=== PATIENT | female | born 1970 | race African-American/Black ===

== ENCOUNTER 2020-11-07 10:39 | Inpatient (IN) | payer OTHER ==
[2020-11-07 11:19] VITALS: BMI 55.9
[2020-11-07] MEDS ORDERED: MAGNESIUM CITRATE 300 ML BOTTLE PO PRN (12:27)
[2020-11-07] MEDS ORDERED: BISMUTH SUBSALICYLATE 524 MG/30 ML PO PRN (12:27)
[2020-11-07] MEDS ORDERED: NICOTINE POLACRILEX 2 MG GUM BUC PRN (12:27)
[2020-11-07] MEDS ORDERED: MENTHOL/PHENOL 1 EACH UD MM PRN (12:27)
[2020-11-07] MEDS ORDERED: MAGNESIUM HYDROX 2400MG/30ML ORAL SUSPENSION 30 ML CUP PO PRN (12:27)
[2020-11-07] MEDS ORDERED: ONDANSETRON *ODT* 4 MG TABLET SL PRN (12:27)
[2020-11-07] MEDS ORDERED: METHADONE HCL 10 MG TABLET (FOR DETOX USE ONLY) PO ONE (12:27)
[2020-11-07] MEDS ORDERED: ACETAMINOPHEN 325 MG TABLET (FP) PO PRN ×2 (12:27)
[2020-11-07] MEDS ORDERED: MAG HYDROX/AL HYDROX/SIMETH 30 ML UNIT-DOSE CUP PO PRN (12:27)
[2020-11-07] MEDS ORDERED: cloNIDine HCL 0.1 MG TABLET PO PRN (12:27)
[2020-11-07] MEDS ORDERED: METHADONE HCL 10 MG TABLET (FOR DETOX USE ONLY) ONE (13:12)
[2020-11-07] MEDS ORDERED: cloNIDine HCL 0.1 MG TABLET ONE (13:12)
[2020-11-07] MEDS: METHOCARBAMOL 500 MG TABLET PO PRN (14:16)
[2020-11-07] MEDS: amLODIPine BESYLATE 10 MG TABLET (FP) PO SCH (14:16)
[2020-11-07 14:41] LABS: HEMOGLOBIN 11.5 GM/dL (10.7-15.3); MCH 26.2 pg (25.7-33.7); MEAN CELL VOLUME 81.9 fl (80-96); MEAN PLT VOLUME 7.5 fl (7.5-11.1); PLATELET COUNT 317 K/MM3 (134-434); RBC 4.39 M/mm3 (3.60-5.2); WHITE BLOOD COUNT 11.4 K/mm3 (4.0-10.0)
[2020-11-07 14:53] LABS: ALBUMIN 3.3 g/dl (3.4-5.0); BLOOD UREA NITROGEN 10.7 mg/dL (7-18); CALCIUM 9.1 mg/dL (8.5-10.1)
[2020-11-07 14:57] LABS: BILIRUBIN,TOTAL 0.5 mg/dL (0.2-1); CREATININE 0.8 mg/dL (0.55-1.3); TOT PROT 7.8 g/dl (6.4-8.2)
[2020-11-07] MEDS: PRENATAL VITAMINS W/ FOLIC ACID TABLET (FP) PO SCH (22:53)
[2020-11-07] MEDS: THIAMINE HCL 100 MG TABLET (FP) PO SCH (23:21)
[2020-11-07] MEDS: MELATONIN 5 MG TABLETS PO SCH (23:41)
[2020-11-08] MEDS ORDERED: METHADONE HCL 5 MG TABLET (FOR DETOX USE ONLY) ONE (08:49)
[2020-11-08] MEDS ORDERED: METHADONE HCL 10 MG TABLET (FOR DETOX USE ONLY) ONE (08:49)
[2020-11-08] MEDS ORDERED: METHADONE (DETOX) 20 MG, METHADONE (DETOX) 5 MG PO ONE (10:00)
[2020-11-08] MEDS: amLODIPine BESYLATE 10 MG TABLET (FP) PO SCH (10:20)
[2020-11-08] MEDS: PRENATAL VITAMINS W/ FOLIC ACID TABLET (FP) PO SCH (10:20)
[2020-11-08] MEDS: METHOCARBAMOL 500 MG TABLET PO PRN ×2 (10:22→17:40)
[2020-11-08] MEDS: IBUPROFEN 400 MG TABLET (FP) PO PRN ×2 (10:23→17:40)
[2020-11-08] MEDS ORDERED: amLODIPine BESYLATE 10 MG TABLET (FP) PO SCH (11:08)
[2020-11-08] MEDS ORDERED: cloNIDine HCL 0.1 MG TABLET PO PRN (11:15)
[2020-11-08] MEDS: MELATONIN 5 MG TABLETS PO SCH (22:52)
[2020-11-08] MEDS: THIAMINE HCL 100 MG TABLET (FP) PO SCH (22:52)
[2020-11-09] MEDS ORDERED: METHADONE HCL 10 MG TABLET (FOR DETOX USE ONLY) PO ONE (10:00)
[2020-11-09] MEDS: PRENATAL VITAMINS W/ FOLIC ACID TABLET (FP) PO SCH (10:58)
[2020-11-09] MEDS: amLODIPine BESYLATE 10 MG TABLET (FP) PO SCH (10:58)
[2020-11-09] MEDS: LISINOPRIL 10 MG TABLET PO SCH ×2 (10:59→22:46)
[2020-11-09] MEDS: IBUPROFEN 400 MG TABLET (FP) PO PRN (10:59)
[2020-11-09] MEDS: METHOCARBAMOL 500 MG TABLET PO PRN ×2 (10:59→17:54)
[2020-11-09] MEDS: MELATONIN 5 MG TABLETS PO SCH (22:45)
[2020-11-09] MEDS: THIAMINE HCL 100 MG TABLET (FP) PO SCH (22:47)
[2020-11-10 08:06] LABS: SARS-CoV-2 NAA Not Detected (Not Detected)
[2020-11-10] MEDS ORDERED: METHADONE HCL 10 MG TABLET (FOR DETOX USE ONLY) ONE (08:41)
[2020-11-10] MEDS ORDERED: METHADONE HCL 5 MG TABLET (FOR DETOX USE ONLY) ONE (08:41)
[2020-11-10] MEDS: LISINOPRIL 10 MG TABLET PO SCH ×2 (09:40→22:43)
[2020-11-10] MEDS: amLODIPine BESYLATE 10 MG TABLET (FP) PO SCH ×2 (09:40→22:43)
[2020-11-10] MEDS: PRENATAL VITAMINS W/ FOLIC ACID TABLET (FP) PO SCH (09:40)
[2020-11-10] MEDS ORDERED: METHADONE (DETOX) 10 MG, METHADONE (DETOX) 5 MG PO ONE (10:00)
[2020-11-10] MEDS: METHOCARBAMOL 500 MG TABLET PO PRN ×2 (13:16→18:17)
[2020-11-10] MEDS: IBUPROFEN 400 MG TABLET (FP) PO PRN ×2 (13:16→18:16)
[2020-11-10] MEDS: QUEtiapine FUMARATE 50 MG TABLET PO SCH (22:44)
[2020-11-10] MEDS: MELATONIN 5 MG TABLETS PO SCH (22:44)
[2020-11-10] MEDS: THIAMINE HCL 100 MG TABLET (FP) PO SCH (22:44)
[2020-11-11] MEDS: METHOCARBAMOL 500 MG TABLET PO PRN (06:45)
[2020-11-11] MEDS ORDERED: METHADONE HCL 10 MG TABLET (FOR DETOX USE ONLY) PO ONE (10:00)
[2020-11-11] MEDS: amLODIPine BESYLATE 10 MG TABLET (FP) PO SCH (11:17)
[2020-11-11] MEDS: LISINOPRIL 10 MG TABLET PO SCH ×2 (11:17→22:48)
[2020-11-11] MEDS: PRENATAL VITAMINS W/ FOLIC ACID TABLET (FP) PO SCH (11:18)
[2020-11-11] MEDS: QUEtiapine FUMARATE 50 MG TABLET PO SCH (22:48)
[2020-11-11] MEDS: THIAMINE HCL 100 MG TABLET (FP) PO SCH (22:48)
[2020-11-11] MEDS: MELATONIN 5 MG TABLETS PO SCH (22:48)
[2020-11-12] MEDS ORDERED: METHADONE HCL 5 MG TABLET (FOR DETOX USE ONLY) PO ONE (06:00)
[2020-11-12] MEDS ORDERED: amLODIPine BESYLATE 10 MG TABLET (FP) PO SCH (10:00)
[2020-11-12] MEDS: LISINOPRIL 10 MG TABLET PO SCH (10:38)
[2020-11-12] MEDS: PRENATAL VITAMINS W/ FOLIC ACID TABLET (FP) PO SCH (10:38)
[2020-11-12 11:08] VITALS: BP 125/85; PULSE 79; TEMP 96.6
== END 2020-11-12 13:48 | disposition other institution (70) | DRG 773 ==
LOC: YASAS 10:39 → Y6N 13:14
PROVIDERS: ADMIT Allergy & Immunology; ATTEND Allergy & Immunology
PROC: HZ2ZZZZ Detoxification Services for Substance Abuse Treatment (ICD-10-PCS; principal; 2020-11-07)
DX: F11.23 Opioid dependence with withdrawal (principal); F10.20 Alcohol dependence, uncomplicated; F17.210 Nicotine dependence, cigarettes, uncomplicated; F31.9 Bipolar disorder, unspecified; F19.282 Other psychoactive substance dependence with psychoactive substance-induced sleep disorder; F19.24 Other psychoactive substance dependence with psychoactive substance-induced mood disorder; I10 Essential (primary) hypertension; A53.0 Latent syphilis, unspecified as early or late; R76.11 Nonspecific reaction to tuberculin skin test without active tuberculosis; Z62.810 Personal history of physical and sexual abuse in childhood; E66.01 Morbid (severe) obesity due to excess calories; Z68.43 Body mass index [BMI] 50.0-59.9, adult
CPT/HCPCS: 36415; 71046-TC-FY; 80053; 81025; 82962; 85027; 86593; 86780; 93005; 93010; C9803; J0735; U0003; U0005

== ENCOUNTER 2020-11-12 13:39 | Inpatient (IN) | payer OTHER ==
[~2020-11-12 13:39] MED LIST: ACETAMINOPHEN 325 MG TABLET (FP) PO PRN; LOPERAMIDE HCL 2 MG CAPSULE PO PRN; MAG HYDROX/AL HYDROX/SIMETH 30 ML UNIT-DOSE CUP PO PRN; MAGNESIUM CITRATE 300 ML BOTTLE PO PRN; MAGNESIUM HYDROX 2400MG/30ML ORAL SUSPENSION 30 ML CUP PO PRN; guaiFENesin 200 MG/10 ML 10 ML UNIT-DOSE CUPS PO PRN
[2020-11-12] MEDS: hydrOXYzine PAMOATE 25 MG CAPSULE (FP) PO SCH ×3 (14:15→21:46)
[2020-11-12] MEDS: THIAMINE HCL 100 MG TABLET (FP) PO SCH (21:45)
[2020-11-12] MEDS: MELATONIN 5 MG TABLETS PO SCH (21:45)
[2020-11-12] MEDS: QUEtiapine FUMARATE 50 MG TABLET PO SCH (21:45)
[2020-11-12] MEDS: LISINOPRIL 10 MG TABLET PO SCH (21:45)
[2020-11-13] MEDS: hydrOXYzine PAMOATE 25 MG CAPSULE (FP) PO SCH ×5 (07:27→21:22)
[2020-11-13] MEDS ORDERED: MASKS NR ONE (08:29)
[2020-11-13] MEDS ORDERED: ONDANSETRON *ODT* 4 MG TABLET SL PRN (09:25)
[2020-11-13] MEDS: LISINOPRIL 10 MG TABLET PO SCH ×2 (10:38→21:22)
[2020-11-13] MEDS: PRENATAL VITAMINS W/ FOLIC ACID TABLET (FP) PO SCH (10:39)
[2020-11-13] MEDS: amLODIPine BESYLATE 10 MG TABLET (FP) PO SCH (10:39)
[2020-11-13] MEDS: FUROSEMIDE 20 MG TABLET (FP) PO SCH (11:11)
[2020-11-13] MEDS: MELATONIN 5 MG TABLETS PO SCH (21:22)
[2020-11-13] MEDS: QUEtiapine FUMARATE 50 MG TABLET PO SCH (21:22)
[2020-11-13] MEDS: THIAMINE HCL 100 MG TABLET (FP) PO SCH (21:22)
[2020-11-14] MEDS: hydrOXYzine PAMOATE 25 MG CAPSULE (FP) PO SCH ×5 (06:31→21:43)
[2020-11-14] MEDS: METHOCARBAMOL 500 MG TABLET PO PRN (06:32)
[2020-11-14] MEDS: IBUPROFEN 400 MG TABLET (FP) PO PRN (06:33)
[2020-11-14] MEDS: PRENATAL VITAMINS W/ FOLIC ACID TABLET (FP) PO SCH (10:39)
[2020-11-14] MEDS: LISINOPRIL 10 MG TABLET PO SCH ×2 (10:40→21:43)
[2020-11-14] MEDS: FUROSEMIDE 20 MG TABLET (FP) PO SCH (13:05)
[2020-11-14] MEDS: amLODIPine BESYLATE 10 MG TABLET (FP) PO SCH (13:05)
[2020-11-14] MEDS: THIAMINE HCL 100 MG TABLET (FP) PO SCH (21:43)
[2020-11-14] MEDS: MELATONIN 5 MG TABLETS PO SCH (21:43)
[2020-11-14] MEDS: QUEtiapine FUMARATE 50 MG TABLET PO SCH (21:43)
[2020-11-15] MEDS: hydrOXYzine PAMOATE 25 MG CAPSULE (FP) PO SCH ×5 (06:39→21:27)
[2020-11-15] MEDS: METHOCARBAMOL 500 MG TABLET PO PRN (06:39)
[2020-11-15] MEDS: IBUPROFEN 400 MG TABLET (FP) PO PRN (06:39)
[2020-11-15] MEDS: PRENATAL VITAMINS W/ FOLIC ACID TABLET (FP) PO SCH (10:09)
[2020-11-15] MEDS: FUROSEMIDE 20 MG TABLET (FP) PO SCH (10:09)
[2020-11-15] MEDS: amLODIPine BESYLATE 10 MG TABLET (FP) PO SCH (10:09)
[2020-11-15] MEDS: LISINOPRIL 10 MG TABLET PO SCH ×2 (10:10→21:26)
[2020-11-15] MEDS ORDERED: BUPRENORPHINE/NALOXONE 2 MG/0.5 MG FILM PACKET SL ONE (14:00)
[2020-11-15] MEDS: MELATONIN 5 MG TABLETS PO SCH (21:26)
[2020-11-15] MEDS: QUEtiapine FUMARATE 50 MG TABLET PO SCH (21:26)
[2020-11-15] MEDS: THIAMINE HCL 100 MG TABLET (FP) PO SCH (21:26)
[2020-11-16] MEDS: hydrOXYzine PAMOATE 25 MG CAPSULE (FP) PO SCH ×5 (06:37→21:49)
[2020-11-16] MEDS ORDERED: BUPRENORPHINE/NALOXONE 4 MG/1 MG FILM PACKET SL ONE (10:00)
[2020-11-16] MEDS: PRENATAL VITAMINS W/ FOLIC ACID TABLET (FP) PO SCH (10:11)
[2020-11-16] MEDS: LISINOPRIL 10 MG TABLET PO SCH ×2 (11:42→21:49)
[2020-11-16] MEDS: amLODIPine BESYLATE 10 MG TABLET (FP) PO SCH (11:42)
[2020-11-16 14:12] LABS: SARS-CoV-2 NAA Not Detected (Not Detected)
[2020-11-16] MEDS: MELATONIN 5 MG TABLETS PO SCH (21:48)
[2020-11-16] MEDS: QUEtiapine FUMARATE 50 MG TABLET PO SCH (21:49)
[2020-11-16] MEDS: THIAMINE HCL 100 MG TABLET (FP) PO SCH (21:49)
[2020-11-17] MEDS: hydrOXYzine PAMOATE 25 MG CAPSULE (FP) PO SCH ×5 (07:22→21:17)
[2020-11-17] MEDS: amLODIPine BESYLATE 10 MG TABLET (FP) PO SCH (10:27)
[2020-11-17] MEDS: LISINOPRIL 10 MG TABLET PO SCH ×2 (10:27→21:17)
[2020-11-17] MEDS: PRENATAL VITAMINS W/ FOLIC ACID TABLET (FP) PO SCH (10:27)
[2020-11-17] MEDS: BUPRENORPHINE/NALOXONE 8 MG/2 MG FILM PACKET SL SCH (10:27)
[2020-11-17] MEDS: QUEtiapine FUMARATE 50 MG TABLET PO SCH (21:17)
[2020-11-17] MEDS: MELATONIN 5 MG TABLETS PO SCH (21:17)
[2020-11-17] MEDS: THIAMINE HCL 100 MG TABLET (FP) PO SCH (21:17)
[2020-11-18] MEDS: hydrOXYzine PAMOATE 25 MG CAPSULE (FP) PO SCH ×5 (06:31→21:42)
[2020-11-18] MEDS: PRENATAL VITAMINS W/ FOLIC ACID TABLET (FP) PO SCH (10:04)
[2020-11-18] MEDS: LISINOPRIL 10 MG TABLET PO SCH ×2 (10:05→21:42)
[2020-11-18] MEDS: amLODIPine BESYLATE 10 MG TABLET (FP) PO SCH (10:05)
[2020-11-18] MEDS: BUPRENORPHINE/NALOXONE 8 MG/2 MG FILM PACKET SL SCH (10:05)
[2020-11-18] MEDS: MELATONIN 5 MG TABLETS PO SCH (21:41)
[2020-11-18] MEDS: THIAMINE HCL 100 MG TABLET (FP) PO SCH (21:41)
[2020-11-18] MEDS: QUEtiapine FUMARATE 50 MG TABLET PO SCH (21:42)
[2020-11-19] MEDS ORDERED: MASKS NR ONE (06:25)
[2020-11-19] MEDS: hydrOXYzine PAMOATE 25 MG CAPSULE (FP) PO SCH ×5 (06:31→21:43)
[2020-11-19] MEDS: PRENATAL VITAMINS W/ FOLIC ACID TABLET (FP) PO SCH (10:10)
[2020-11-19] MEDS: amLODIPine BESYLATE 10 MG TABLET (FP) PO SCH (10:10)
[2020-11-19] MEDS: LISINOPRIL 10 MG TABLET PO SCH ×2 (10:10→21:43)
[2020-11-19] MEDS: BUPRENORPHINE/NALOXONE 8 MG/2 MG FILM PACKET SL SCH (10:11)
[2020-11-19] MEDS: QUEtiapine FUMARATE 50 MG TABLET PO SCH (21:43)
[2020-11-19] MEDS: THIAMINE HCL 100 MG TABLET (FP) PO SCH (21:43)
[2020-11-19] MEDS: MELATONIN 5 MG TABLETS PO SCH (21:43)
[2020-11-20] MEDS: hydrOXYzine PAMOATE 25 MG CAPSULE (FP) PO SCH ×3 (07:04→16:16)
[2020-11-20] MEDS: PRENATAL VITAMINS W/ FOLIC ACID TABLET (FP) PO SCH (10:20)
[2020-11-20] MEDS: amLODIPine BESYLATE 10 MG TABLET (FP) PO SCH (10:20)
[2020-11-20] MEDS: LISINOPRIL 10 MG TABLET PO SCH ×2 (10:20→21:49)
[2020-11-20] MEDS: BUPRENORPHINE/NALOXONE 8 MG/2 MG FILM PACKET SL SCH (10:21)
[2020-11-20] MEDS: IBUPROFEN 400 MG TABLET (FP) PO PRN (10:22)
[2020-11-20] MEDS: THIAMINE HCL 100 MG TABLET (FP) PO SCH (21:48)
[2020-11-20] MEDS: PRAZOSIN HCL 1 MG CAPSULE PO SCH (21:48)
[2020-11-20] MEDS: METHOCARBAMOL 500 MG TABLET PO PRN (21:49)
[2020-11-20] MEDS: QUEtiapine FUMARATE 50 MG TABLET PO SCH (21:49)
[2020-11-20] MEDS: hydrOXYzine PAMOATE 25 MG CAPSULE (FP) PO PRN (21:49)
[2020-11-21] MEDS: amLODIPine BESYLATE 10 MG TABLET (FP) PO SCH (10:45)
[2020-11-21] MEDS: METHOCARBAMOL 500 MG TABLET PO PRN ×2 (10:45→21:27)
[2020-11-21] MEDS: hydrOXYzine PAMOATE 25 MG CAPSULE (FP) PO PRN ×2 (10:45→21:28)
[2020-11-21] MEDS: IBUPROFEN 400 MG TABLET (FP) PO PRN (10:45)
[2020-11-21] MEDS: PRENATAL VITAMINS W/ FOLIC ACID TABLET (FP) PO SCH (10:45)
[2020-11-21] MEDS: LISINOPRIL 10 MG TABLET PO SCH ×2 (10:45→21:28)
[2020-11-21] MEDS: BUPRENORPHINE/NALOXONE 8 MG/2 MG FILM PACKET SL SCH ×2 (10:46→21:29)
[2020-11-21] MEDS: PRAZOSIN HCL 1 MG CAPSULE PO SCH (21:27)
[2020-11-21] MEDS: QUEtiapine FUMARATE 50 MG TABLET PO SCH (21:27)
[2020-11-21] MEDS: THIAMINE HCL 100 MG TABLET (FP) PO SCH (21:27)
[2020-11-21] MEDS ORDERED: PT OWN MED DRAWER 7, Y5N ONE (21:27)
[2020-11-22] MEDS: BUPRENORPHINE/NALOXONE 8 MG/2 MG FILM PACKET SL SCH ×2 (10:35→21:27)
[2020-11-22] MEDS: amLODIPine BESYLATE 10 MG TABLET (FP) PO SCH (10:35)
[2020-11-22] MEDS: LISINOPRIL 10 MG TABLET PO SCH ×2 (10:35→21:24)
[2020-11-22] MEDS: PRENATAL VITAMINS W/ FOLIC ACID TABLET (FP) PO SCH (10:35)
[2020-11-22] MEDS: IBUPROFEN 400 MG TABLET (FP) PO PRN (10:36)
[2020-11-22] MEDS: hydrOXYzine PAMOATE 25 MG CAPSULE (FP) PO PRN ×2 (10:37→21:23)
[2020-11-22] MEDS ORDERED: PT OWN MED DRAWER 7, Y5N ONE (19:21)
[2020-11-22] MEDS: PRAZOSIN HCL 1 MG CAPSULE PO SCH (21:23)
[2020-11-22] MEDS: METHOCARBAMOL 500 MG TABLET PO PRN (21:24)
[2020-11-22] MEDS: QUEtiapine FUMARATE 50 MG TABLET PO SCH (21:24)
[2020-11-22] MEDS: THIAMINE HCL 100 MG TABLET (FP) PO SCH (21:25)
[2020-11-23] MEDS: PRENATAL VITAMINS W/ FOLIC ACID TABLET (FP) PO SCH (10:42)
[2020-11-23] MEDS: amLODIPine BESYLATE 10 MG TABLET (FP) PO SCH (10:42)
[2020-11-23] MEDS: LISINOPRIL 10 MG TABLET PO SCH ×2 (10:42→21:58)
[2020-11-23] MEDS: BUPRENORPHINE/NALOXONE 8 MG/2 MG FILM PACKET SL SCH ×2 (10:42→21:58)
[2020-11-23] MEDS: hydrOXYzine PAMOATE 25 MG CAPSULE (FP) PO PRN ×2 (10:43→21:58)
[2020-11-23] MEDS: THIAMINE HCL 100 MG TABLET (FP) PO SCH (21:58)
[2020-11-23] MEDS: QUEtiapine FUMARATE 50 MG TABLET PO SCH (21:59)
[2020-11-23] MEDS: PRAZOSIN HCL 1 MG CAPSULE PO SCH (21:59)
[2020-11-24] MEDS: PRENATAL VITAMINS W/ FOLIC ACID TABLET (FP) PO SCH (10:41)
[2020-11-24] MEDS: BUPRENORPHINE/NALOXONE 8 MG/2 MG FILM PACKET SL SCH ×2 (10:42→22:04)
[2020-11-24] MEDS: amLODIPine BESYLATE 10 MG TABLET (FP) PO SCH (10:42)
[2020-11-24] MEDS: LISINOPRIL 10 MG TABLET PO SCH ×2 (10:42→22:00)
[2020-11-24] MEDS ORDERED: PT OWN MED DRAWER 7, Y5N ONE (20:18)
[2020-11-24] MEDS: QUEtiapine FUMARATE 50 MG TABLET PO SCH (22:00)
[2020-11-24] MEDS: PRAZOSIN HCL 1 MG CAPSULE PO SCH (22:00)
[2020-11-24] MEDS: THIAMINE HCL 100 MG TABLET (FP) PO SCH (22:01)
[2020-11-25] MEDS: PRENATAL VITAMINS W/ FOLIC ACID TABLET (FP) PO SCH (10:42)
[2020-11-25] MEDS: LISINOPRIL 10 MG TABLET PO SCH ×2 (10:42→21:25)
[2020-11-25] MEDS: amLODIPine BESYLATE 10 MG TABLET (FP) PO SCH (10:42)
[2020-11-25] MEDS: BUPRENORPHINE/NALOXONE 8 MG/2 MG FILM PACKET SL SCH ×2 (10:42→21:25)
[2020-11-25] MEDS: hydrOXYzine PAMOATE 25 MG CAPSULE (FP) PO PRN ×2 (10:43→21:28)
[2020-11-25] MEDS: QUEtiapine FUMARATE 50 MG TABLET PO SCH (21:25)
[2020-11-25] MEDS: THIAMINE HCL 100 MG TABLET (FP) PO SCH (21:25)
[2020-11-25] MEDS: PRAZOSIN HCL 1 MG CAPSULE PO SCH (21:26)
[2020-11-25] MEDS ORDERED: PT OWN MED DRAWER 7, Y5N ONE (21:26)
[2020-11-26] MEDS: LISINOPRIL 10 MG TABLET PO SCH ×2 (10:49→21:53)
[2020-11-26] MEDS: PRENATAL VITAMINS W/ FOLIC ACID TABLET (FP) PO SCH (10:49)
[2020-11-26] MEDS: amLODIPine BESYLATE 10 MG TABLET (FP) PO SCH (10:49)
[2020-11-26] MEDS: BUPRENORPHINE/NALOXONE 8 MG/2 MG FILM PACKET SL SCH ×2 (10:50→21:54)
[2020-11-26] MEDS: IBUPROFEN 400 MG TABLET (FP) PO PRN (10:51)
[2020-11-26] MEDS ORDERED: PT OWN MED DRAWER 7, Y5N ONE (19:44)
[2020-11-26] MEDS: PRAZOSIN HCL 1 MG CAPSULE PO SCH (21:53)
[2020-11-26] MEDS: THIAMINE HCL 100 MG TABLET (FP) PO SCH (21:53)
[2020-11-26] MEDS: QUEtiapine FUMARATE 50 MG TABLET PO SCH (21:53)
[2020-11-26] MEDS: hydrOXYzine PAMOATE 25 MG CAPSULE (FP) PO PRN (21:54)
[2020-11-27 06:49] VITALS: TEMP 97.3
[2020-11-27] MEDS: IBUPROFEN 400 MG TABLET (FP) PO PRN (07:00)
[2020-11-27 09:18] VITALS: BP 102/56; PULSE 97
[2020-11-27] MEDS: PRENATAL VITAMINS W/ FOLIC ACID TABLET (FP) PO SCH (09:58)
[2020-11-27] MEDS: LISINOPRIL 10 MG TABLET PO SCH (09:58)
[2020-11-27] MEDS: BUPRENORPHINE/NALOXONE 8 MG/2 MG FILM PACKET SL SCH (09:59)
[2020-11-27] MEDS: amLODIPine BESYLATE 10 MG TABLET (FP) PO SCH (09:59)
[2020-11-27] MEDS: hydrOXYzine PAMOATE 25 MG CAPSULE (FP) PO PRN (10:02)
== END 2020-11-27 10:15 | disposition home or self-care (01) | DRG 772 ==
LOC: YASAS 13:39 → Y5N 13:40
PROVIDERS: ADMIT Allergy & Immunology; ATTEND Allergy & Immunology
PROC: HZ42ZZZ Group Counseling for Substance Abuse Treatment, Cognitive-Behavioral (ICD-10-PCS; principal; 2020-11-12)
DX: F11.20 Opioid dependence, uncomplicated (principal); F10.20 Alcohol dependence, uncomplicated; F17.210 Nicotine dependence, cigarettes, uncomplicated; F31.9 Bipolar disorder, unspecified; F43.10 Post-traumatic stress disorder, unspecified; G47.00 Insomnia, unspecified; I10 Essential (primary) hypertension; Z62.810 Personal history of physical and sexual abuse in childhood; E66.01 Morbid (severe) obesity due to excess calories; Z68.43 Body mass index [BMI] 50.0-59.9, adult; Z91.410 Personal history of adult physical and sexual abuse; Z86.19 Personal history of other infectious and parasitic diseases; Z51.81 Encounter for therapeutic drug level monitoring; Z99.89 Dependence on other enabling machines and devices
CPT/HCPCS: C9803; Q0162; U0003; U0005

== ENCOUNTER 2021-03-19 15:22 | Inpatient (IN) | payer OTHER ==
[2021-03-19 18:14] VITALS: BMI 54.9
[2021-03-19] MEDS ORDERED: MENTHOL/PHENOL 1 EACH UD MM PRN (19:09)
[2021-03-19] MEDS ORDERED: methaDONE HCL 10 MG TABLET (FOR DETOX USE ONLY) PO ONE (19:09)
[2021-03-19] MEDS ORDERED: ACETAMINOPHEN 325 MG TABLET (FP) PO PRN ×2 (19:09)
[2021-03-19] MEDS ORDERED: MAG HYDROX/AL HYDROX/SIMETH 30 ML UNIT-DOSE CUP PO PRN (19:09)
[2021-03-19] MEDS ORDERED: BISMUTH SUBSALICYLATE 524 MG/30 ML PO PRN (19:09)
[2021-03-19] MEDS ORDERED: NICOTINE 10 MG CARTRIDGE (INHALER) IH PRN (19:09)
[2021-03-19] MEDS ORDERED: ONDANSETRON *ODT* 4 MG TABLET SL PRN (19:09)
[2021-03-19] MEDS ORDERED: NICOTINE POLACRILEX 2 MG GUM BUC PRN (19:09)
[2021-03-19] MEDS ORDERED: MAGNESIUM HYDROX 2400MG/30ML ORAL SUSPENSION 30 ML CUP PO PRN (19:09)
[2021-03-19] MEDS ORDERED: MAGNESIUM CITRATE 300 ML BOTTLE PO PRN (19:09)
[2021-03-19] MEDS ORDERED: IBUPROFEN 400 MG TABLET (FP) PO PRN (19:09)
[2021-03-19] MEDS ORDERED: methaDONE HCL 10 MG TABLET (FOR DETOX USE ONLY) ONE (21:01)
[2021-03-19] MEDS: METHOCARBAMOL 500 MG TABLET PO PRN (23:08)
[2021-03-19] MEDS: cloNIDine HCL 0.1 MG TABLET PO PRN (23:08)
[2021-03-19] MEDS: hydrOXYzine PAMOATE 25 MG CAPSULE (FP) PO SCH (23:08)
[2021-03-19] MEDS: MELATONIN 5 MG TABLETS PO SCH (23:09)
[2021-03-19] MEDS: THIAMINE HCL 100 MG TABLET (FP) PO SCH (23:10)
[2021-03-20] MEDS: hydrOXYzine PAMOATE 25 MG CAPSULE (FP) PO SCH ×2 (07:51→11:57)
[2021-03-20] MEDS ORDERED: methaDONE HCL 10 MG TABLET (FOR DETOX USE ONLY) ONE (09:18)
[2021-03-20] MEDS ORDERED: methaDONE HCL 10 MG TABLET (FOR DETOX USE ONLY) PO ONE (10:00)
[2021-03-20 10:17] LABS: HEMATOCRIT 36.9 % (32.4-45.2); HEMOGLOBIN 11.9 GM/dL (10.7-15.3); MCH 26.1 pg (25.7-33.7); MCHC 32.2 g/dl (32.0-36.0); MEAN PLT VOLUME 7.2 fl (7.5-11.1); PLATELET COUNT 296 10^3/uL (134-434); RBC 4.55 M/mm3 (3.60-5.2); WHITE BLOOD COUNT 7.1 K/mm3 (4.0-10.0)
[2021-03-20 10:24] LABS: BILIRUBIN,TOTAL 0.2 mg/dL (0.2-1); TOT PROT 7.5 g/dl (6.4-8.2)
[2021-03-20 10:30] LABS: ALBUMIN 3.1 g/dl (3.4-5.0)
[2021-03-20 10:43] LABS: CALCIUM 9.1 mg/dL (8.5-10.1)
[2021-03-20] MEDS ORDERED: hydrOXYzine PAMOATE 25 MG CAPSULE (FP) PO PRN (11:56)
[2021-03-20] MEDS: diazePAM 5 MG TABLET PO PRN ×2 (12:26→18:23)
[2021-03-20] MEDS: amLODIPine BESYLATE 10 MG TABLET (FP) PO SCH (12:28)
[2021-03-20] MEDS: cloNIDine HCL 0.1 MG TABLET PO PRN (18:23)
[2021-03-20] MEDS: MELATONIN 5 MG TABLETS PO SCH (22:11)
[2021-03-20] MEDS: THIAMINE HCL 100 MG TABLET (FP) PO SCH (22:11)
[2021-03-20] MEDS: LISINOPRIL 10 MG TABLET PO SCH (22:11)
[2021-03-20] MEDS: METHOCARBAMOL 500 MG TABLET PO PRN (22:12)
[2021-03-21] MEDS ORDERED: methaDONE HCL 10 MG TABLET (FOR DETOX USE ONLY) PO ONE (10:00)
[2021-03-21] MEDS: amLODIPine BESYLATE 10 MG TABLET (FP) PO SCH (10:26)
[2021-03-21] MEDS: LISINOPRIL 10 MG TABLET PO SCH ×2 (10:26→22:24)
[2021-03-21] MEDS: THIAMINE HCL 100 MG TABLET (FP) PO SCH (22:24)
[2021-03-21] MEDS: MELATONIN 5 MG TABLETS PO SCH (22:24)
[2021-03-21] MEDS: diazePAM 5 MG TABLET PO PRN (22:26)
[2021-03-22] MEDS ORDERED: MASKS NR ONE (09:27)
[2021-03-22] MEDS: LISINOPRIL 10 MG TABLET PO SCH (10:06)
[2021-03-22] MEDS: amLODIPine BESYLATE 10 MG TABLET (FP) PO SCH (10:06)
[2021-03-22 13:40] VITALS: BP 143/65; PULSE 69; TEMP 96.4
[2021-03-22] MEDS ORDERED: QUEtiapine FUMARATE 50 MG TABLET PO SCH (22:00)
== END 2021-03-22 14:25 | disposition home or self-care (01) | DRG 773 ==
LOC: YASAS 15:22 → Y3N 19:01
PROVIDERS: ADMIT Allergy & Immunology; ATTEND Allergy & Immunology
PROC: HZ2ZZZZ Detoxification Services for Substance Abuse Treatment (ICD-10-PCS; principal; 2021-03-19)
DX: F11.23 Opioid dependence with withdrawal (principal); F10.20 Alcohol dependence, uncomplicated; F17.210 Nicotine dependence, cigarettes, uncomplicated; F19.282 Other psychoactive substance dependence with psychoactive substance-induced sleep disorder; F19.24 Other psychoactive substance dependence with psychoactive substance-induced mood disorder; G47.00 Insomnia, unspecified; E66.01 Morbid (severe) obesity due to excess calories; Z68.43 Body mass index [BMI] 50.0-59.9, adult; Z99.89 Dependence on other enabling machines and devices; Z86.11 Personal history of tuberculosis; Z86.59 Personal history of other mental and behavioral disorders; Z91.19 Patient's noncompliance with other medical treatment and regimen
CPT/HCPCS: 36415; 80053; 81025; 85027; 86593; 86780; C9803; J0735; U0003; U0005

== ENCOUNTER 2021-03-22 14:33 | Inpatient (IN) | payer OTHER ==
[2021-03-22] MEDS ORDERED: LOPERAMIDE HCL 2 MG CAPSULE PO PRN (15:19)
[2021-03-22] MEDS ORDERED: MENTHOL/PHENOL 1 EACH UD MM PRN (15:19)
[2021-03-22] MEDS ORDERED: guaiFENesin 200 MG/10 ML 10 ML UNIT-DOSE CUPS PO PRN (15:19)
[2021-03-22] MEDS ORDERED: MAG HYDROX/AL HYDROX/SIMETH 30 ML UNIT-DOSE CUP PO PRN (15:19)
[2021-03-22] MEDS ORDERED: P-EPHED 60MG/TRIPROLIDI 2.5MG TABLET PO PRN (15:19)
[2021-03-22] MEDS ORDERED: MAGNESIUM CITRATE 300 ML BOTTLE PO PRN (15:19)
[2021-03-22] MEDS ORDERED: MAGNESIUM HYDROX 2400MG/30ML ORAL SUSPENSION 30 ML CUP PO PRN (15:19)
[2021-03-22] MEDS ORDERED: IBUPROFEN 400 MG TABLET (FP) PO PRN (15:19)
[2021-03-22] MEDS: ACETAMINOPHEN 325 MG TABLET (FP) PO PRN (18:25)
[2021-03-22] MEDS: LISINOPRIL 10 MG TABLET PO SCH (21:05)
[2021-03-22] MEDS: THIAMINE HCL 100 MG TABLET (FP) PO SCH (21:05)
[2021-03-22] MEDS ORDERED: QUEtiapine FUMARATE 50 MG TABLET PO SCH (22:00)
[2021-03-22] MEDS ORDERED: MELATONIN 5 MG TABLETS PO SCH (22:00)
[2021-03-23] MEDS: NICOTINE 7 MG/24 HOURS TOPICAL PATCH TD SCH (10:55)
[2021-03-23] MEDS: hydrOXYzine PAMOATE 25 MG CAPSULE (FP) PO PRN (10:56)
[2021-03-23] MEDS: amLODIPine BESYLATE 10 MG TABLET (FP) PO SCH (10:56)
[2021-03-23] MEDS: PRENATAL VITAMINS W/ FOLIC ACID TABLET (FP) PO SCH (10:56)
[2021-03-23] MEDS: LISINOPRIL 10 MG TABLET PO SCH ×2 (10:56→21:03)
[2021-03-23] MEDS: NICOTINE 10 MG CARTRIDGE (INHALER) IH PRN (10:56)
[2021-03-23] MEDS: ACETAMINOPHEN 325 MG TABLET (FP) PO PRN ×2 (10:58→21:01)
[2021-03-23] MEDS: ARIPiprazole 2 MG TABLET PO SCH (13:58)
[2021-03-23] MEDS: THIAMINE HCL 100 MG TABLET (FP) PO SCH (21:03)
[2021-03-23] MEDS: PRAZOSIN HCL 1 MG CAPSULE PO SCH (22:05)
[2021-03-24] MEDS: amLODIPine BESYLATE 10 MG TABLET (FP) PO SCH (10:18)
[2021-03-24] MEDS: LISINOPRIL 10 MG TABLET PO SCH ×2 (10:18→22:15)
[2021-03-24] MEDS: PRENATAL VITAMINS W/ FOLIC ACID TABLET (FP) PO SCH (10:18)
[2021-03-24] MEDS: ARIPiprazole 2 MG TABLET PO SCH (10:19)
[2021-03-24] MEDS: NICOTINE 7 MG/24 HOURS TOPICAL PATCH TD SCH (10:19)
[2021-03-24] MEDS: ACETAMINOPHEN 325 MG TABLET (FP) PO PRN ×2 (10:21→22:14)
[2021-03-24] MEDS: hydrOXYzine PAMOATE 25 MG CAPSULE (FP) PO PRN (10:22)
[2021-03-24] MEDS ORDERED: PT OWN MED DRAWER 7, Y5N ONE (20:45)
[2021-03-24] MEDS: PRAZOSIN HCL 1 MG CAPSULE PO SCH (22:14)
[2021-03-24] MEDS: THIAMINE HCL 100 MG TABLET (FP) PO SCH (22:15)
[2021-03-24] MEDS: SUVOREXANT 10 MG TABLET PO PRN (22:18)
[2021-03-25] MEDS: PRENATAL VITAMINS W/ FOLIC ACID TABLET (FP) PO SCH (10:47)
[2021-03-25] MEDS: amLODIPine BESYLATE 10 MG TABLET (FP) PO SCH (10:47)
[2021-03-25] MEDS: LISINOPRIL 10 MG TABLET PO SCH ×2 (10:48→22:16)
[2021-03-25] MEDS: NICOTINE 7 MG/24 HOURS TOPICAL PATCH TD SCH (10:48)
[2021-03-25] MEDS: ARIPiprazole 2 MG TABLET PO SCH (10:48)
[2021-03-25] MEDS: ACETAMINOPHEN 325 MG TABLET (FP) PO PRN ×2 (10:49→22:18)
[2021-03-25] MEDS: THIAMINE HCL 100 MG TABLET (FP) PO SCH (22:16)
[2021-03-25] MEDS: PRAZOSIN HCL 1 MG CAPSULE PO SCH (22:16)
[2021-03-25] MEDS: SUVOREXANT 10 MG TABLET PO PRN (22:18)
[2021-03-26] MEDS ORDERED: PT OWN MED DRAWER 7, Y5N ONE (09:04)
[2021-03-26] MEDS: NICOTINE 7 MG/24 HOURS TOPICAL PATCH TD SCH (10:20)
[2021-03-26] MEDS: ARIPiprazole 2 MG TABLET PO SCH (10:21)
[2021-03-26] MEDS: PRENATAL VITAMINS W/ FOLIC ACID TABLET (FP) PO SCH (10:21)
[2021-03-26] MEDS: hydrOXYzine PAMOATE 25 MG CAPSULE (FP) PO PRN ×2 (10:22→21:14)
[2021-03-26] MEDS: NICOTINE 10 MG CARTRIDGE (INHALER) IH PRN (10:23)
[2021-03-26] MEDS: ACETAMINOPHEN 325 MG TABLET (FP) PO PRN (10:53)
[2021-03-26] MEDS: LISINOPRIL 10 MG TABLET PO SCH ×2 (10:53→21:14)
[2021-03-26] MEDS: amLODIPine BESYLATE 10 MG TABLET (FP) PO SCH (12:08)
[2021-03-26] MEDS ORDERED: BUPRENORPHINE/NALOXONE 2 MG/0.5 MG FILM PACKET SL ONE (12:45)
[2021-03-26] MEDS: THIAMINE HCL 100 MG TABLET (FP) PO SCH (21:14)
[2021-03-26] MEDS: PRAZOSIN HCL 1 MG CAPSULE PO SCH (21:14)
[2021-03-26] MEDS: SUVOREXANT 15 MG TABLET PO PRN (21:16)
[2021-03-26] MEDS ORDERED: SUVOREXANT 10 MG TABLET PO PRN (22:00)
[2021-03-27] MEDS ORDERED: BUPRENORPHINE/NALOXONE 4 MG/1 MG FILM PACKET SL ONE (10:00)
[2021-03-27] MEDS ORDERED: BUPRENORPHINE/NALOXONE 4 MG/1 MG FILM PACKET SL SCH (10:00)
[2021-03-27] MEDS: ARIPiprazole 2 MG TABLET PO SCH (10:59)
[2021-03-27] MEDS: amLODIPine BESYLATE 10 MG TABLET (FP) PO SCH (10:59)
[2021-03-27] MEDS: LISINOPRIL 10 MG TABLET PO SCH ×2 (10:59→21:08)
[2021-03-27] MEDS: hydrOXYzine PAMOATE 25 MG CAPSULE (FP) PO PRN (10:59)
[2021-03-27] MEDS: PRENATAL VITAMINS W/ FOLIC ACID TABLET (FP) PO SCH (10:59)
[2021-03-27] MEDS: NICOTINE 7 MG/24 HOURS TOPICAL PATCH TD SCH (11:00)
[2021-03-27] MEDS: THIAMINE HCL 100 MG TABLET (FP) PO SCH (21:08)
[2021-03-27] MEDS: PRAZOSIN HCL 1 MG CAPSULE PO SCH (21:09)
[2021-03-28] MEDS: amLODIPine BESYLATE 10 MG TABLET (FP) PO SCH (10:23)
[2021-03-28] MEDS: ARIPiprazole 2 MG TABLET PO SCH (10:23)
[2021-03-28] MEDS: NICOTINE 7 MG/24 HOURS TOPICAL PATCH TD SCH (10:23)
[2021-03-28] MEDS: PRENATAL VITAMINS W/ FOLIC ACID TABLET (FP) PO SCH (10:23)
[2021-03-28] MEDS: LISINOPRIL 10 MG TABLET PO SCH ×2 (10:24→21:36)
[2021-03-28] MEDS ORDERED: BUPRENORPHINE/NALOXONE 4 MG/1 MG FILM PACKET SL ONE (11:00)
[2021-03-28] MEDS: BUPRENORPHINE/NALOXONE 4 MG/1 MG FILM PACKET SL SCH (18:07)
[2021-03-28] MEDS: hydrOXYzine PAMOATE 25 MG CAPSULE (FP) PO PRN (21:36)
[2021-03-28] MEDS: PRAZOSIN HCL 1 MG CAPSULE PO SCH (21:37)
[2021-03-28] MEDS: THIAMINE HCL 100 MG TABLET (FP) PO SCH (21:37)
[2021-03-28] MEDS: SUVOREXANT 15 MG TABLET PO PRN (21:38)
[2021-03-29] MEDS: PRENATAL VITAMINS W/ FOLIC ACID TABLET (FP) PO SCH (10:47)
[2021-03-29] MEDS: LISINOPRIL 10 MG TABLET PO SCH ×2 (10:48→21:10)
[2021-03-29] MEDS: NICOTINE 7 MG/24 HOURS TOPICAL PATCH TD SCH (10:48)
[2021-03-29] MEDS: amLODIPine BESYLATE 10 MG TABLET (FP) PO SCH (10:48)
[2021-03-29] MEDS: BUPRENORPHINE/NALOXONE 4 MG/1 MG FILM PACKET SL SCH ×2 (10:48→18:07)
[2021-03-29] MEDS: ARIPiprazole 2 MG TABLET PO SCH (10:48)
[2021-03-29] MEDS: hydrOXYzine PAMOATE 25 MG CAPSULE (FP) PO PRN (21:10)
[2021-03-29] MEDS: THIAMINE HCL 100 MG TABLET (FP) PO SCH (21:10)
[2021-03-29] MEDS: PRAZOSIN HCL 1 MG CAPSULE PO SCH (21:10)
[2021-03-29] MEDS: SUVOREXANT 15 MG TABLET PO PRN (21:12)
[2021-03-30] MEDS: BUPRENORPHINE/NALOXONE 4 MG/1 MG FILM PACKET SL SCH ×2 (10:38→18:21)
[2021-03-30] MEDS: amLODIPine BESYLATE 10 MG TABLET (FP) PO SCH (10:38)
[2021-03-30] MEDS: LISINOPRIL 10 MG TABLET PO SCH ×2 (10:38→21:24)
[2021-03-30] MEDS: ARIPiprazole 2 MG TABLET PO SCH (10:39)
[2021-03-30] MEDS: PRENATAL VITAMINS W/ FOLIC ACID TABLET (FP) PO SCH (10:40)
[2021-03-30] MEDS: NICOTINE 7 MG/24 HOURS TOPICAL PATCH TD SCH (10:40)
[2021-03-30] MEDS: hydrOXYzine PAMOATE 25 MG CAPSULE (FP) PO PRN (10:42)
[2021-03-30] MEDS ORDERED: PT OWN MED DRAWER 7, Y5N ONE (20:52)
[2021-03-30] MEDS: PRAZOSIN HCL 1 MG CAPSULE PO SCH (21:24)
[2021-03-30] MEDS: SUVOREXANT 15 MG TABLET PO PRN (21:24)
[2021-03-30] MEDS: THIAMINE HCL 100 MG TABLET (FP) PO SCH (21:24)
[2021-03-30] MEDS: ACETAMINOPHEN 325 MG TABLET (FP) PO PRN (21:58)
[2021-03-31] MEDS: LISINOPRIL 10 MG TABLET PO SCH ×2 (10:15→22:06)
[2021-03-31] MEDS: PRENATAL VITAMINS W/ FOLIC ACID TABLET (FP) PO SCH (10:15)
[2021-03-31] MEDS: BUPRENORPHINE/NALOXONE 4 MG/1 MG FILM PACKET SL SCH ×2 (10:16→18:17)
[2021-03-31] MEDS: NICOTINE 7 MG/24 HOURS TOPICAL PATCH TD SCH (10:16)
[2021-03-31] MEDS: ARIPiprazole 2 MG TABLET PO SCH (10:16)
[2021-03-31] MEDS: amLODIPine BESYLATE 10 MG TABLET (FP) PO SCH (10:17)
[2021-03-31] MEDS: PRAZOSIN HCL 1 MG CAPSULE PO SCH (22:06)
[2021-03-31] MEDS: hydrOXYzine PAMOATE 25 MG CAPSULE (FP) PO PRN (22:06)
[2021-03-31] MEDS: THIAMINE HCL 100 MG TABLET (FP) PO SCH (22:06)
[2021-03-31] MEDS: SUVOREXANT 15 MG TABLET PO PRN (22:06)
[2021-04-01] MEDS: PRENATAL VITAMINS W/ FOLIC ACID TABLET (FP) PO SCH (10:45)
[2021-04-01] MEDS: hydrOXYzine PAMOATE 25 MG CAPSULE (FP) PO PRN ×2 (10:45→22:08)
[2021-04-01] MEDS: amLODIPine BESYLATE 10 MG TABLET (FP) PO SCH (10:45)
[2021-04-01] MEDS: ARIPiprazole 2 MG TABLET PO SCH (10:45)
[2021-04-01] MEDS: BUPRENORPHINE/NALOXONE 4 MG/1 MG FILM PACKET SL SCH ×2 (10:45→18:19)
[2021-04-01] MEDS: LISINOPRIL 10 MG TABLET PO SCH ×2 (10:45→22:08)
[2021-04-01] MEDS: NICOTINE 7 MG/24 HOURS TOPICAL PATCH TD SCH (10:46)
[2021-04-01] MEDS ORDERED: SUVOREXANT 10 MG TABLET PO PRN (22:00)
[2021-04-01] MEDS ORDERED: SUVOREXANT 15 MG TABLET PO PRN (22:00)
[2021-04-01] MEDS: THIAMINE HCL 100 MG TABLET (FP) PO SCH (22:08)
[2021-04-01] MEDS: PRAZOSIN HCL 1 MG CAPSULE PO SCH (22:08)
[2021-04-02] MEDS: PRENATAL VITAMINS W/ FOLIC ACID TABLET (FP) PO SCH (10:39)
[2021-04-02] MEDS: LISINOPRIL 10 MG TABLET PO SCH ×2 (10:39→21:14)
[2021-04-02] MEDS: NICOTINE 7 MG/24 HOURS TOPICAL PATCH TD SCH (10:39)
[2021-04-02] MEDS: BUPRENORPHINE/NALOXONE 4 MG/1 MG FILM PACKET SL SCH ×2 (10:39→18:21)
[2021-04-02] MEDS: amLODIPine BESYLATE 10 MG TABLET (FP) PO SCH ×2 (10:39→10:53)
[2021-04-02] MEDS: ARIPiprazole 2 MG TABLET PO SCH (10:39)
[2021-04-02] MEDS: THIAMINE HCL 100 MG TABLET (FP) PO SCH (21:14)
[2021-04-02] MEDS: PRAZOSIN HCL 1 MG CAPSULE PO SCH (21:16)
[2021-04-03] MEDS: BUPRENORPHINE/NALOXONE 4 MG/1 MG FILM PACKET SL SCH ×2 (10:15→17:56)
[2021-04-03] MEDS: NICOTINE 7 MG/24 HOURS TOPICAL PATCH TD SCH (10:15)
[2021-04-03] MEDS: PRENATAL VITAMINS W/ FOLIC ACID TABLET (FP) PO SCH (10:15)
[2021-04-03] MEDS: amLODIPine BESYLATE 10 MG TABLET (FP) PO SCH (10:22)
[2021-04-03] MEDS: LISINOPRIL 10 MG TABLET PO SCH ×2 (10:25→21:07)
[2021-04-03] MEDS: ARIPiprazole 2 MG TABLET PO SCH (11:49)
[2021-04-03] MEDS: THIAMINE HCL 100 MG TABLET (FP) PO SCH (21:07)
[2021-04-03] MEDS: PRAZOSIN HCL 1 MG CAPSULE PO SCH (21:07)
[2021-04-03 21:24] VITALS: TEMP 97.1
[2021-04-04] MEDS: amLODIPine BESYLATE 10 MG TABLET (FP) PO SCH (10:50)
[2021-04-04] MEDS: LISINOPRIL 10 MG TABLET PO SCH ×2 (10:50→21:13)
[2021-04-04] MEDS: BUPRENORPHINE/NALOXONE 4 MG/1 MG FILM PACKET SL SCH ×2 (10:50→17:43)
[2021-04-04] MEDS: ARIPiprazole 2 MG TABLET PO SCH (10:50)
[2021-04-04] MEDS: PRENATAL VITAMINS W/ FOLIC ACID TABLET (FP) PO SCH (10:51)
[2021-04-04] MEDS: NICOTINE 7 MG/24 HOURS TOPICAL PATCH TD SCH (10:51)
[2021-04-04] MEDS: hydrOXYzine PAMOATE 25 MG CAPSULE (FP) PO PRN ×2 (10:52→21:13)
[2021-04-04] MEDS: PRAZOSIN HCL 1 MG CAPSULE PO SCH (21:13)
[2021-04-04] MEDS: THIAMINE HCL 100 MG TABLET (FP) PO SCH (21:13)
[2021-04-04 21:24] VITALS: BP 122/60; PULSE 83
[2021-04-04] MEDS ORDERED: SUVOREXANT 15 MG TABLET PO PRN (22:00)
[2021-04-05] MEDS: PRENATAL VITAMINS W/ FOLIC ACID TABLET (FP) PO SCH (10:36)
[2021-04-05] MEDS: amLODIPine BESYLATE 10 MG TABLET (FP) PO SCH (10:37)
[2021-04-05] MEDS: LISINOPRIL 10 MG TABLET PO SCH (10:37)
[2021-04-05] MEDS: BUPRENORPHINE/NALOXONE 4 MG/1 MG FILM PACKET SL SCH (10:37)
[2021-04-05] MEDS: hydrOXYzine PAMOATE 25 MG CAPSULE (FP) PO PRN (10:37)
[2021-04-05] MEDS: NICOTINE 7 MG/24 HOURS TOPICAL PATCH TD SCH (10:38)
[2021-04-05] MEDS: ACETAMINOPHEN 325 MG TABLET (FP) PO PRN (10:39)
[2021-04-05] MEDS: ARIPiprazole 2 MG TABLET PO SCH (10:39)
== END 2021-04-05 11:10 | disposition home or self-care (01) | DRG 772 ==
LOC: YASAS 14:33 → Y5N 14:34
PROVIDERS: ADMIT Allergy & Immunology; ATTEND Allergy & Immunology
PROC: HZ42ZZZ Group Counseling for Substance Abuse Treatment, Cognitive-Behavioral (ICD-10-PCS; principal; 2021-03-22)
DX: F10.20 Alcohol dependence, uncomplicated (principal); F11.20 Opioid dependence, uncomplicated; F17.210 Nicotine dependence, cigarettes, uncomplicated; F43.10 Post-traumatic stress disorder, unspecified; F31.9 Bipolar disorder, unspecified; F19.282 Other psychoactive substance dependence with psychoactive substance-induced sleep disorder; I10 Essential (primary) hypertension; E66.01 Morbid (severe) obesity due to excess calories; Z68.43 Body mass index [BMI] 50.0-59.9, adult; Z86.19 Personal history of other infectious and parasitic diseases; Z62.810 Personal history of physical and sexual abuse in childhood; Z91.19 Patient's noncompliance with other medical treatment and regimen; Z56.0 Unemployment, unspecified
CPT/HCPCS: C9803; U0003; U0005

== ENCOUNTER 2021-08-07 14:55 | Inpatient (IN) | payer OTHER ==
[2021-08-07] MEDS ORDERED: MAGNESIUM CITRATE 300 ML BOTTLE PO PRN (17:17)
[2021-08-07] MEDS ORDERED: ACETAMINOPHEN 325 MG TABLET (FP) PO PRN ×2 (17:17)
[2021-08-07] MEDS ORDERED: BISMUTH SUBSALICYLATE 524 MG/30 ML PO PRN (17:17)
[2021-08-07] MEDS ORDERED: IBUPROFEN 400 MG TABLET (FP) PO PRN (17:17)
[2021-08-07] MEDS ORDERED: NICOTINE 10 MG CARTRIDGE (INHALER) IH PRN (17:17)
[2021-08-07] MEDS ORDERED: MAG HYDROX/AL HYDROX/SIMETH 30 ML UNIT-DOSE CUP PO PRN (17:17)
[2021-08-07] MEDS ORDERED: MELATONIN 5 MG TABLETS PO PRN (17:17)
[2021-08-07] MEDS ORDERED: MENTHOL/PHENOL 1 EACH UD MM PRN (17:17)
[2021-08-07] MEDS ORDERED: ONDANSETRON *ODT* 4 MG TABLET SL PRN (17:17)
[2021-08-07] MEDS ORDERED: MAGNESIUM HYDROX 2400MG/30ML ORAL SUSPENSION 30 ML CUP PO PRN (17:17)
[2021-08-07] MEDS ORDERED: LOPERAMIDE HCL 2 MG CAPSULE PO PRN (17:17)
[2021-08-07 18:33] VITALS: BMI 34.7
[2021-08-07] MEDS ORDERED: cloNIDine HCL 0.1 MG TABLET PO PRN (20:14)
[2021-08-07] MEDS ORDERED: methaDONE HCL 10 MG TABLET (FOR DETOX USE ONLY) PO ONE (20:14)
[2021-08-07] MEDS: LISINOPRIL 10 MG TABLET PO SCH (20:59)
[2021-08-07] MEDS: THIAMINE HCL 100 MG TABLET (FP) PO SCH (20:59)
[2021-08-08] MEDS: LISINOPRIL 10 MG TABLET PO SCH ×2 (10:27→22:53)
[2021-08-08] MEDS: hydrOXYzine PAMOATE 25 MG CAPSULE (FP) PO PRN ×2 (10:27→18:40)
[2021-08-08] MEDS: METHOCARBAMOL 500 MG TABLET PO PRN (10:27)
[2021-08-08] MEDS: PRENATAL VITAMINS W/ FOLIC ACID TABLET (FP) PO SCH (10:27)
[2021-08-08] MEDS: amLODIPine BESYLATE 10 MG TABLET (FP) PO SCH (10:27)
[2021-08-08 12:54] LABS: HEMATOCRIT 37.8 % (32.4-45.2); HEMOGLOBIN 11.7 GM/dL (10.7-15.3); MCH 25.5 pg (25.7-33.7); MCHC 30.8 g/dl (32.0-36.0); MEAN CELL VOLUME 82.8 fl (80-96); MEAN PLT VOLUME 7.6 fl (7.5-11.1); PLATELET COUNT 279 10^3/uL (134-434); RBC 4.56 M/mm3 (3.60-5.2); WHITE BLOOD COUNT 6.8 K/mm3 (4.0-10.0)
[2021-08-08 13:19] LABS: ALBUMIN 3.4 g/dl (3.4-5.0); CALCIUM 9.6 mg/dL (8.5-10.1); CREATININE 0.9 mg/dL (0.55-1.3)
[2021-08-08 13:20] LABS: BLOOD UREA NITROGEN 11.1 mg/dL (7-18)
[2021-08-08 13:21] LABS: BILIRUBIN,TOTAL 0.2 mg/dL (0.2-1); TOT PROT 7.5 g/dl (6.4-8.2)
[2021-08-08] MEDS: ARIPiprazole 2 MG TABLET PO SCH (13:23)
[2021-08-08] MEDS: THIAMINE HCL 100 MG TABLET (FP) PO SCH (22:52)
[2021-08-08] MEDS: QUEtiapine FUMARATE 50 MG TABLET PO SCH (22:52)
[2021-08-08] MEDS: PRAZOSIN HCL 1 MG CAPSULE PO SCH (22:53)
[2021-08-09] MEDS ORDERED: methaDONE HCL 10 MG TABLET (FOR DETOX USE ONLY) PO ONE (10:00)
[2021-08-09] MEDS: hydrOXYzine PAMOATE 25 MG CAPSULE (FP) PO PRN ×2 (10:52→23:06)
[2021-08-09] MEDS: ARIPiprazole 2 MG TABLET PO SCH (10:52)
[2021-08-09] MEDS: amLODIPine BESYLATE 10 MG TABLET (FP) PO SCH (10:52)
[2021-08-09] MEDS: LISINOPRIL 10 MG TABLET PO SCH ×2 (10:53→23:06)
[2021-08-09] MEDS: METHOCARBAMOL 500 MG TABLET PO PRN (10:53)
[2021-08-09] MEDS: PRENATAL VITAMINS W/ FOLIC ACID TABLET (FP) PO SCH (10:54)
[2021-08-09] MEDS: QUEtiapine FUMARATE 50 MG TABLET PO SCH (23:06)
[2021-08-09] MEDS: PRAZOSIN HCL 1 MG CAPSULE PO SCH (23:07)
[2021-08-09] MEDS: THIAMINE HCL 100 MG TABLET (FP) PO SCH (23:07)
[2021-08-10] MEDS: LISINOPRIL 10 MG TABLET PO SCH (11:03)
[2021-08-10] MEDS: PRENATAL VITAMINS W/ FOLIC ACID TABLET (FP) PO SCH (11:03)
[2021-08-10] MEDS: hydrOXYzine PAMOATE 25 MG CAPSULE (FP) PO PRN (11:03)
[2021-08-10] MEDS: amLODIPine BESYLATE 10 MG TABLET (FP) PO SCH (11:03)
[2021-08-10] MEDS: ARIPiprazole 2 MG TABLET PO SCH (11:04)
[2021-08-10] MEDS: METHOCARBAMOL 500 MG TABLET PO PRN (11:04)
[2021-08-10 15:24] VITALS: BP 145/76; PULSE 72; TEMP 97.3
[2021-08-11 14:07] LABS: SARS-CoV-2 NAA Not Detected (Not Detected)
== END 2021-08-10 15:07 | disposition other institution (70) | DRG 773 ==
LOC: YASAS 14:55 → Y6N 18:04 → UNDOADMIN 18:04 → Y6N 18:11
PROVIDERS: ADMIT Allergy & Immunology; ATTEND Allergy & Immunology
PROC: HZ2ZZZZ Detoxification Services for Substance Abuse Treatment (ICD-10-PCS; principal; 2021-08-07)
DX: F11.23 Opioid dependence with withdrawal (principal); F10.20 Alcohol dependence, uncomplicated; F17.210 Nicotine dependence, cigarettes, uncomplicated; F19.282 Other psychoactive substance dependence with psychoactive substance-induced sleep disorder; F31.9 Bipolar disorder, unspecified; F43.10 Post-traumatic stress disorder, unspecified; I10 Essential (primary) hypertension; Z62.810 Personal history of physical and sexual abuse in childhood; R76.11 Nonspecific reaction to tuberculin skin test without active tuberculosis; E66.9 Obesity, unspecified; Z68.34 Body mass index [BMI] 34.0-34.9, adult; Z91.410 Personal history of adult physical and sexual abuse; Z99.89 Dependence on other enabling machines and devices; Z86.19 Personal history of other infectious and parasitic diseases
CPT/HCPCS: 36415; 80053; 85027; 86593; 86780; 87811; C9803; J0735; U0003; U0005